=== PATIENT | female | born 1950 | race Caucasian/White ===

== ENCOUNTER 2017-02-11 06:07 | Day surgery (SDC) | payer MEDICARE ==
[~2017-02-11] VITALS: Ht 157.5 cm; Wt 46.8 kg
[2017-02-11 06:30] VITALS: BP 196/97; PULSE 110; RESP 20; TEMP 98.3; O2SAT 99
[2017-02-11] MEDS ORDERED: SODIUM BICARBONATE 100 MEQ in D5W 1000 ML IV SCH (06:45)
[2017-02-11] MEDS ORDERED: LORazepam 2 MG/ML VIAL ONE (07:05)
[2017-02-11 07:30] LABS: AUTOMATED NEUTROPHIL # 6.1 TH/MM3 (1.8-7.7); BASOPHIL % 0.6 % (0.0-2.0); EOSINOPHIL # 0.1 TH/MM3 (0-0.4); EOSINOPHIL % 1.3 % (0.0-4.0); HEMATOCRIT 35.8 % (35.0-46.0); HEMO FLAGS DIFF FINAL; LYMPH % 13.7 % (9.0-44.0); LYMPHOCYTE # 1.1 TH/MM3 (1.0-4.8); MEAN CELL VOLUME 95.7 FL (80.0-100.0); MEAN CORPUSCULAR HEMOGLOBIN 32.1 PG (27.0-34.0); MEAN CORPUSCULAR HGB CONC 33.5 % (32.0-36.0); MONO % 8.9 % (0.0-8.0); NEUT % 75.5 % (16.0-70.0); PLATELET COUNT 406 TH/MM3 (150-450); RED BLOOD COUNT 3.74 MIL/MM3 (4.00-5.30); RED CELL DISTRIBUTION WIDTH 13.3 % (11.6-17.2)
[2017-02-11 07:42] LABS: APTT (PATIENT) 25.9 SEC (24.3-30.1); PROTHROMBIN TIME - PATIENT 10.9 SEC (9.8-11.6)
[2017-02-11] MEDS ORDERED: NO HOME MEDICATIONS (07:46)
[2017-02-11 07:47] LABS: BICARBONATE 23.8 MEQ/L (21.0-32.0); POTASSIUM 3.8 MEQ/L (3.5-5.1)
[2017-02-11] MEDS ORDERED: HEPARIN SODIUM - IV 10,000 UNITS/10 ML VIAL ONE (08:09)
[2017-02-11] MEDS ORDERED: MIDAZOLAM HCL 5 MG/ML VIAL (1 ML) ONE (08:10)
[2017-02-11] MEDS ORDERED: IOHEXOL 300 MG/ML 50 ML BTL (for RAD DIAG) OTHER ONE (08:44)
[2017-02-11] MEDS ORDERED: IOHEXOL 300 MG/ML 100 ML BTL (for Rad CT) OTHER ONE (08:44)
[2017-02-11] MEDS ORDERED: LORazepam 2 MG/ML VIAL IV ONE (09:00)
[2017-02-11] MEDS ORDERED: hydrALAZINE HCL 20 MG/ML VIAL ONE (09:38)
[2017-02-11] MEDS: LORazepam 2 MG/ML VIAL IV PRN ×2 (09:59→13:31)
[2017-02-11] MEDS ORDERED: hydrALAZINE HCL 20 MG/ML VIAL IV PRN (11:00)
--- NOTE | 2017-02-11 11:16 | MA ---
cc: KYREE BARRON DATE 02/11/2017 ATTENDING PHYSICIAN Kyree Barron DO PREOPERATIVE DIAGNOSIS Critical limb ischemia bilateral lower extremity wounds. POSTOPERATIVE DIAGNOSIS Critical limb ischemia bilateral lower extremity wounds. PROCEDURE 1. Selective bilateral lower extremity arteriogram. 2. Duplex ultrasound for access SURGEON Kyree Barron DO CHANNEL LIP WETTER None IV FLUIDS 500 cc crystalloid. SEDATION Monitored ESTIMATED BLOOD LOSS Minimal PROCEDURE The patient's bilateral groins were prepped and draped in sterile fashion. This was done after the patient was under moderate sedation. I got access using duplex ultrasound of the bilateral groins with 4-[place] Citizen micropuncture catheters and I used approximately 6 cc of 1% lidocaine to help out with local anesthesia. I exchanged over a 21 gauge needle for a 4-[place] Citizen micropuncture catheter using Seldinger technique. I shot selective right lower extremity arteriogram and then subsequently selective left lower extremity arteriogram. My findings were that the right common femoral artery appeared to be patent, but diffusely narrowed with a calcification tracking around it. The right profunda femoral, superficial femoral arteries were widely patent. The right popliteal artery was patent and the patient appeared to have three-vessel runoff. On the left, the left common femoral artery appeared to some diffuse narrowing with a patent profunda and superficial femoral artery. The left popliteal artery was patent and the patient had three-vessel runoff. At the end of the procedure, we removed the sheaths out of the groin and applied pressure. DO TEETEE Kirkland/SARBJITL /9:18 AM /11:14 AM
[2017-02-11] MEDS ORDERED: LEVO250T7 PO (13:35)
[2017-02-11] MEDS ORDERED: AMBI10TA PO (13:35)
[2017-02-11] MEDS ORDERED: LEVOFLOXACIN 500 MG PREMIX INJ 100 ML IV ONE ×2 (13:58→14:00)
[2017-02-11 14:05] LABS: BLOOD, URINE NEG (NEG); COMMENT (UR) CATH-CULTURE IND; CULTURE IF INDICATED CATH CULTURE IND; GLUCOSE,URINE NEG (NEG); KETONE, URINE NEG (NEG); NITRITE,URINE NEG (NEG); PH, URINE 7.5 (5.0-8.5); URINE COLOR LIGHT-YELLOW (YELLW/STRAW)
== END 2017-02-11 15:00 | disposition home or self-care (01) ==
LOC: HCVO 06:07 → HDIC 06:08 → HCVO 15:00
PROVIDERS: ATTEND Surgery
DX: I73.9 Peripheral vascular disease, unspecified (principal); I99.8 Other disorder of circulatory system; S81.802D Unspecified open wound, left lower leg, subsequent encounter; S81.801D Unspecified open wound, right lower leg, subsequent encounter; Z87.891 Personal history of nicotine dependence; X58.XXXD Exposure to other specified factors, subsequent encounter
CPT/HCPCS: 36140; 75716; 80048; 81001; 85025; 85610; 85730; 87086; J0360; J1644; J1956; J2060; J2250; J3010; J7070; Q9967

== ENCOUNTER 2017-02-15 08:52 | Inpatient (IN) | payer MEDICARE ==
[~2017-02-15] VITALS: Ht 157.5 cm; Wt 56.8 kg
[~2017-02-15 08:52] MED LIST: AMBI10TA PO
[2017-02-18] MEDS ORDERED: LACTATED RINGER'S 1000 ML IV PRN (07:30)
[2017-02-18] MEDS ORDERED: SODIUM CHLORID 0.9% 500 ML IV PRN (07:30)
[2017-02-18] MEDS ORDERED: INSULIN HUMAN REGULAR 1,000 UNITS/10 ML VIAL SQ PRN (07:30)
[2017-02-18] MEDS ORDERED: METOPROLOL TARTRATE 25 MG TAB PO PRN (07:30)
[2017-02-18] MEDS ORDERED: POVIDONE IODINE 5% (ANTISEPSIS KIT) 4 APPLICATIONS EACH NARE PRN (07:30)
[2017-02-18] MEDS ORDERED: CHLORHEXIDINE GLUCONATE 2 % 1 PACK (2 CLOTHS) TOPICAL PRN (07:30)
[2017-02-18] MEDS ORDERED: PROTAMINE SULFATE 50 MG/5 ML VIAL ONE (07:59)
[2017-02-18] MEDS ORDERED: ceFAZolin 2 GM PREMIX 50 ML ONE (07:59)
[2017-02-18] MEDS ORDERED: VANCOMYCIN HCL 1000 MG VIAL ONE (07:59)
[2017-02-18] MEDS ORDERED: HEPARIN SODIUM - IV 10,000 UNITS/10 ML VIAL ONE (07:59)
[2017-02-18] MEDS ORDERED: HEPARIN SODIUM - SQ 10,000 UNITS/ML VIAL ONE ×2 (07:59→11:14)
[2017-02-18] MEDS ORDERED: THROMBIN (TOPICAL) 20,000 UNIT SPRAY KIT ONE (08:00)
[2017-02-18 08:34] VITALS: BP 159/71; PULSE 93; RESP 18; TEMP 98.4; O2SAT 98
[2017-02-18] MEDS ORDERED: ONDANSETRON HCL 4 MG/2 ML VIAL IV PUSH ONE (08:56)
[2017-02-18] MEDS ORDERED: PHENYLEPH/NS 1000 MCG/10 ML SYR IV ONE (08:56)
[2017-02-18] MEDS ORDERED: LACTATED RINGER'S 1000 ML INJ 1,000 ML IV ONE (08:56)
[2017-02-18] MEDS ORDERED: ePHEDrine/NS 25 MG/5 ML SYR IV ONE (08:56)
[2017-02-18] MEDS ORDERED: PROPOFOL 200 MG/20 ML AMP IV ONE (08:56)
[2017-02-18] MEDS ORDERED: SODIUM CHLOR 0.9% 250 ML INJ 500 ML IV ONE (08:57)
[2017-02-18] MEDS ORDERED: NORMOSOL R INJ 3,000 ML IV ONE (08:57)
[2017-02-18] MEDS ORDERED: ACETAMINOPHEN 1000 MG/100 ML VIAL IV ONE (09:35)
[2017-02-18] MEDS ORDERED: FAMOTIDINE 20 MG/2 ML VIAL ONE (09:35)
[2017-02-18] MEDS ORDERED: DEXAMETHASONE SOD PHOS 4 MG/ML VIAL ONE (09:35)
[2017-02-18] MEDS ORDERED: MIDAZOLAM HCL 2 MG/2 ML VIAL ONE ×2 (09:35→15:14)
[2017-02-18] MEDS ORDERED: BUPIVACAINE HCL PF 0.5% 30 ML VIAL ONE (10:45)
--- NOTE | 2017-02-18 11:06 | PD.VS.PN ---
Pre-operative Note Pre-operative diagnosis: CLI with tissue loss bilateral lower extremities Planned procedure: ax fem-fem Interval History: SEE H&P Labs: UA negative Blood: Type and crossed 2 units EKG: See EKG Imaging: Occluded abdominal aorta below renals Orders: NA Post-operative destination: CVICU Operative site marked: No Consent: Informed consent has been obtained from Daniela Schwarz [facility]. I have explained the procedure in detail and discussed the risks, benefits, and potential complications. All questions have been answered. Patient contact information: Kyree Gregory DO Feb 18, 2017 11:06
[2017-02-18] MEDS ORDERED: fentaNYL CITRATE 250 MCG/5 ML AMP ONE (15:15)
--- NOTE | 2017-02-18 15:17 | HHI.PR ---
Immediate Post Op Note Procedure Date: Feb 18, 2017 Pre Op Diagnosis: CLI Post Op Diagnosis: CLI Surgeon: Kyree Coffey Ornamental Rail Installer(s): Bandar Benites Procedure: Ax fem fem-fem Findings: Patent bypass Additional Information: NA Complications: none Specimen(s) removed: NA Estimated blood loss: 200cc Anesthesia: General Drains: None Fluids: 2liters IVF Tourniquet time (min at mmHg) NA Patient to: PACU Patient Condition: Good Implant/Devices: Other Date/Time of Procedure: Other Kyree Coffey DO Feb 18, 2017 15:17
[2017-02-18] MEDS ORDERED: GLUCAGON 1 MG/ML VIAL OTHER PRN (15:30)
[2017-02-18] MEDS ORDERED: MAGNESIUM HYDROXIDE SUSP 30 ML CUP PO PRN (15:30)
[2017-02-18] MEDS ORDERED: DEXTROSE 50% IN WATER 50 ML VIAL(D50) IV PUSH PRN (15:30)
[2017-02-18] MEDS ORDERED: ACETAMINOPHEN 325 MG TAB PO PRN (15:30)
[2017-02-18] MEDS ORDERED: Post-op Orders (for Pharmacy) MISC OTHER ONE (15:30)
[2017-02-18 16:15] VITALS: BP 109/84; PULSE 76; RESP 16; TEMP 97.4; O2SAT 99
[2017-02-18] MEDS: MORPHINE SULFATE 4 MG/ML INJ IV PUSH PRN (16:20)
[2017-02-18] MEDS: ONDANSETRON HCL 4 MG/2 ML VIAL IV PUSH PRN (16:23)
[2017-02-18 18:00] VITALS: PULSE 88
[2017-02-18] MEDS: INSULIN NovoLIN REGULAR SUPPLEMENTAL SCALE SQ SCH (18:35)
[2017-02-18] MEDS: SODIUM CHLOR 0.9% 1000 ML INJ 1,000 ML IV SCH (18:36)
[2017-02-18 19:00] VITALS: PULSE 76
[2017-02-18 20:00] VITALS: BP 144/80; PULSE 85; RESP 18; TEMP 97.6; O2SAT 99
--- NOTE | 2017-02-18 21:49 | PD.CONS ---
[facility] Service Critical Care Medicine Consult Requested By Dr. Coffey Reason for Consult post-op hemodynamic management Primary Care Physician No Primary Care Physician History of Present Illness This is a 66yF with history of PAD who presents for elective extra-anatomic bypass. She is POD 0 s/p right ax-fem/fem-fem bypass. Intraoperatively she received 3L crystalloid. she arrives to the CVICU extubated. she is arousing from anesthesia, and additional history is unobtainable from the patient. Review of Systems ROS Limitations: Clinical Condition Past Family Social History Allergies: Coded Allergies: No Known Allergies (Unverified , 02/11/17) Past Medical History peripheral arterial disease depression Past Surgical History POD 0 s/p ax-fem/fem-fem bypass Reported Medications reviewed in the chart. unobtainable from the patient due to her clinical condition Active Ordered Medications See MAR Family History unobtainable secondary to the clinical condition of the patient Social History unobtainable secondary to the clinical condition of the patient. Physical Exam Vital Signs Vital Signs Date Time Temp Pulse Resp B/P Pulse Ox O2 Delivery O2 Flow Rate FiO2 02/18/17 18:00 88 02/18/17 16:25 16 02/18/17 16:15 97.4 76 16 109/84 99 02/18/17 08:34 98.4 93 18 159/71 98 Physical Exam gen: middle-aged female, lying in bed, arousing from anesthesia heent: nc. at. perrl. mmm. neck: trachea midline. no jvd. chest: incision in right axilla clean dry intact. equal chest rise. nc o2. cv: normal rate, regular rhythm. sbp 96 mmHg. abd: soft, nontender, nondistended. no guarding. extr: bilateral groin incisions clean dry intact. distal pulses dopplerable. neuro: RASS -2. arousing from anesthesia. Laboratory Laboratory Tests Test 02/18/17 08:30 Blood Type O POSITIVE Assessment and Plan Assessment and Plan Assessment: 66yF POD 0 s/p ax-fem/fem-fem bypass. will monitor patient in the ICU. slightly hypotensive, will need to maintain end-organ perfusion. Recommendations: Acute post-operative pain - morphine prn s/p right ax-fem/fem-fem bypass -- frequent neurovascular checks -- anticoagulation per Dr. Coffey Hypotension -- continue mivf -- may require phenylephrine to keep SBP > 100 mmHg. -- monitor uop closely keep in ICU. advance diet as tolerated. CCM will continue to follow along while in the ICU. Fidencio Lomeli MD Feb 18, 2017 21:49
[2017-02-18] MEDS: DOCUSATE CALCIUM 240 MG CAP PO SCH (22:06)
[2017-02-18] MEDS: PANTOPRAZOLE SOD 40 MG DELAYED RELEASE TAB PO SCH (22:06)
[2017-02-18] MEDS: VANCOMYCIN INJ 1,000 MG in SODIUM CHLOR 0.9% 250 ML INJ 250 ML IV SCH (22:07)
[2017-02-18] MEDS: ZOLPIDEM TARTRATE 5 MG TAB PO PRN (22:33)
[2017-02-18 23:00] VITALS: BP 132/71; PULSE 85; RESP 18; TEMP 97.8; O2SAT 98
[2017-02-18] MEDS: oxyCODONE/ACETAMINOPHEN 5 MG/325 MG TAB PO PRN (23:23)
[2017-02-19] VITALS (12 sets, daily range): BP systolic 92–145; BP diastolic 43–71; PULSE 69–89; RESP 17–19; TEMP 98–99; O2SAT 98–100
[2017-02-19] MEDS: SODIUM CHLOR 0.9% 1000 ML INJ 1,000 ML IV SCH ×2 (04:41→12:06)
[2017-02-19 05:14] LABS: BICARBONATE 24.7 MEQ/L (21.0-32.0); POTASSIUM 3.8 MEQ/L (3.5-5.1)
[2017-02-19 05:23] LABS: CALCIUM-PROTEIN CORRECTED 8.5 MG/DL (8.5-10.1); TOTAL BILIRUBIN ADULT 0.3 MG/DL (0.2-1.0)
[2017-02-19] MEDS: INSULIN NovoLIN REGULAR SUPPLEMENTAL SCALE SQ SCH ×4 (06:00→18:00)
[2017-02-19] MEDS: ASPIRIN EC 325 MG TABEC PO SCH (08:09)
[2017-02-19] MEDS: oxyCODONE/ACETAMINOPHEN 10 MG/325 MG TAB PO PRN ×2 (08:09→17:42)
[2017-02-19] MEDS ORDERED: RESP: ALBUTEROL 2.5 MG/IPRATROPIUM 0.5 MG NEB (PRN) NEB (11:00)
--- NOTE | 2017-02-19 11:00 | HHI.CCPN ---
Subjective Remarks/Hospital Course This is a 66yF with history of PAD who presents for elective extra-anatomic bypass. She is POD 0 s/p right ax-fem/fem-fem bypass. Intraoperatively she received 3L crystalloid. she arrives to the CVICU extubated. she is arousing from anesthesia, and additional history is unobtainable from the patient. 02/19 Patient is awake and alert lying in bed in NAD. Afebrile. Objective Vital Signs Date Time Temp Pulse Resp B/P Pulse Ox O2 Delivery O2 Flow Rate FiO2 02/19/17 08:00 100 Nasal Cannula 2.00 02/19/17 07:00 82 02/19/17 07:00 98.3 17 121/71 Result Diagram: 02/19/17 0433 Other Results Laboratory Tests Test 02/19/17 04:33 Sodium Level 141 MEQ/L Potassium Level 3.8 MEQ/L Chloride Level 109 MEQ/L Carbon Dioxide Level 24.7 MEQ/L Anion Gap 7 MEQ/L Blood Urea Nitrogen 8 MG/DL Creatinine 0.53 MG/DL Estimat Glomerular Filtration 116 ML/MIN Rate Random Glucose 84 MG/DL Calcium Level 7.3 MG/DL Protein Corrected Calcium 8.5 MG/DL Total Bilirubin 0.3 MG/DL Aspartate Amino Transf 32 U/L (AST/SGOT) Alanine Aminotransferase 12 U/L (ALT/SGPT) Alkaline Phosphatase 47 U/L Total Protein 4.9 GM/DL Albumin 2.8 GM/DL Objective Remarks GENERAL: Patient is lying in bed in NAD SKIN: Warm and dry. HEAD: Normocephalic. EYES: No scleral icterus. No injection or drainage. NECK: Supple, trachea midline. No JVD or lymphadenopathy. CARDIOVASCULAR: Regular rate and rhythm without murmurs, gallops, or rubs. RESPIRATORY: Breath sounds equal bilaterally. No accessory muscle use. GASTROINTESTINAL: Abdomen soft, non-tender, nondistended. MUSCULOSKELETAL: No cyanosis, or edema. Neuro: Awake and alert A/P Assessment and Plan Assessment: 66yF s/p ax-fem/fem-fem bypass. Plan Neuro: Acute post-operative pain - morphine prn -Awake and alert s/p right ax-fem/fem-fem bypass -- frequent neurovascular checks -- anticoagulation per Dr. Coffey Pulm: Continue with oxygen keep sat >92% Bronchodilators, check CXR CV: Monitor HR and BP keep MAP>65mmHg On ASA : Monitor renal function, I/O's, electrolytes replacement as needed on NS@100ml/hr GI: Start PO diet if ok with Dr. Coffey ID: Monitor for signs of infections ( Fever, WBC). Perioperative abx per Vasc. On Vanco. Heme: Monitor CBC Endo: SSI for glycemic control GI/DVT prophylaxis- On Protonix 40mg daily, start chemical AC prophylaxis once cleared by vascular surg. Check labs today Will sign off and transfer care to [facility] Level 2 Tunde Aguero MD Feb 19, 2017 11:00
[2017-02-19] MEDS: MORPHINE SULFATE 4 MG/ML INJ IV PUSH PRN (12:04)
--- NOTE | 2017-02-19 12:05 | RADRPT ---
EXAM DATE/TIME: 02/19/2017 11:03 [facility] COMPARISON: CHEST PA & LAT, February 17, 2017, 12:37. INDICATIONS : Short of breath MEDICAL HISTORY : Hypertension. SURGICAL HISTORY : bilateral femoral bypass ENCOUNTER: Subsequent ACUITY: 3 days PAIN SCORE: 0/10 LOCATION: Bilateral chest FINDINGS: The lungs are clear without infiltrate, nodule, or mass. There is no appreciable pleural effusion fo r technique. Heart and mediastinum are unremarkable. There are atherosclerotic calcifications of the aorta due to chronic atherosclerotic disease. Left IJ line is present with tip overlapping the expec ria region of the SVC. There are old healed rib fractures in the left chest. There are gas bubbles in the right upper chest extending to the axilla with clips at the site postsurgical changes. CONCLUSION: No acute cardiopulmonary disease. Yumiko Real MD on February 19, 2017 at 12:02 Board Certified Radiologist. This report was verified electronically.
[2017-02-19] MEDS: VANCOMYCIN INJ 1,000 MG in SODIUM CHLOR 0.9% 250 ML INJ 250 ML IV SCH (12:07)
[2017-02-19 12:40] LABS: AUTOMATED NEUTROPHIL # 3.9 TH/MM3 (1.8-7.7); BASOPHIL % 0.6 % (0.0-2.0); EOSINOPHIL # 0.1 TH/MM3 (0-0.4); EOSINOPHIL % 1.1 % (0.0-4.0); LYMPH % 21.3 % (9.0-44.0); LYMPHOCYTE # 1.4 TH/MM3 (1.0-4.8); MEAN CELL VOLUME 96.7 FL (80.0-100.0); MEAN CORPUSCULAR HEMOGLOBIN 32.5 PG (27.0-34.0); MEAN CORPUSCULAR HGB CONC 33.6 % (32.0-36.0); MONO % 17.2 % (0.0-8.0); NEUT % 59.8 % (16.0-70.0); PLATELET COUNT 197 TH/MM3 (150-450); RED BLOOD COUNT 2.11 MIL/MM3 (4.00-5.30); RED CELL DISTRIBUTION WIDTH 13.5 % (11.6-17.2); WHITE BLOOD COUNT 6.4 TH/MM3 (4.0-11.0)
[2017-02-19 12:54] LABS: HEMATOCRIT 20.4 % (35.0-46.0); HEMO FLAGS DIFF FINAL
[2017-02-19 13:04] LABS: MAGNESIUM 1.9 MG/DL (1.5-2.5); POTASSIUM 3.4 MEQ/L (3.5-5.1)
[2017-02-19 13:22] LABS: CALCIUM-PROTEIN CORRECTED 8.5 MG/DL (8.5-10.1)
[2017-02-19] MEDS ORDERED: MAGNESIUM SULFATE INJ 2 GM in SODIUM CHLORIDE 0.9% INJ 96 ML IV PRN (13:45)
[2017-02-19] MEDS ORDERED: POTASSIUM PHOSPHATE MONOBASIC 500 MG TAB PO PRN (13:45)
[2017-02-19] MEDS ORDERED: POTASSIUM CHLOR 40 MEQ PREMIX 100 ML IV PRN ×2 (13:45)
[2017-02-19] MEDS ORDERED: POTASSIUM PHOSPHATE MONOBASIC 500 MG TAB PO/TUBE PRN (13:45)
[2017-02-19] MEDS ORDERED: SODIUM PHOSPHATE INJ 30 MMOL in SODIUM CHLOR 0.9% 250 ML INJ 240 ML IV PRN (13:45)
[2017-02-19] MEDS ORDERED: POTASSIUM CHLOR 20 MEQ PREMIX 100 ML IV PRN ×2 (13:45)
[2017-02-19] MEDS ORDERED: POTASSIUM CHLORIDE 25 MEQ EFFERVESCENT TAB PO PRN (13:45)
[2017-02-19] MEDS ORDERED: MAGNESIUM OXIDE 400 MG TAB PO PRN (13:45)
[2017-02-19] MEDS ORDERED: MAGNESIUM SULFATE INJ 4 GM in SODIUM CHLORIDE 0.9% INJ 92 ML IV PRN (13:45)
[2017-02-19] MEDS ORDERED: POTASSIUM PHOSPHATE INJ 30 MMOL in SODIUM CHLOR 0.9% 250 ML INJ 250 ML IV PRN (13:45)
[2017-02-19 13:58] LABS: REVIEW FLAG FINAL
[2017-02-19 13:59] LABS: HEMATOCRIT 19.2 % (35.0-46.0)
--- NOTE | 2017-02-19 14:06 | PD.VS.PN ---
Subjective POD #: 1 Procedure(s): ax fem, fem-fem Subjective/Hospital Course some foot pain on the left. Objective Vascular: strong signals bilateral DP and PT. Dressing bilateral groins are intact. Laboratory Laboratory Tests Test 02/19/17 02/19/17 02/19/17 04:33 12:21 13:00 Sodium Level 141 144 Potassium Level 3.8 3.4 Chloride Level 109 113 Carbon Dioxide Level 24.7 26.0 Anion Gap 7 5 Blood Urea Nitrogen 8 7 Creatinine 0.53 0.47 Estimat Glomerular Filtration 116 133 Rate Random Glucose 84 97 Calcium Level 7.3 7.2 Protein Corrected Calcium 8.5 8.5 Total Bilirubin 0.3 Aspartate Amino Transf 32 (AST/SGOT) Alanine Aminotransferase 12 (ALT/SGPT) Alkaline Phosphatase 47 Total Protein 4.9 4.7 Albumin 2.8 White Blood Count 6.4 Red Blood Count 2.11 Hemoglobin 6.9 6.5 Hematocrit 20.4 19.2 Mean Corpuscular Volume 96.7 Mean Corpuscular Hemoglobin 32.5 Mean Corpuscular Hemoglobin 33.6 Concent Red Cell Distribution Width 13.5 Platelet Count 197 Mean Platelet Volume 7.6 Neutrophils (%) (Auto) 59.8 Lymphocytes (%) (Auto) 21.3 Monocytes (%) (Auto) 17.2 Eosinophils (%) (Auto) 1.1 Basophils (%) (Auto) 0.6 Neutrophils # (Auto) 3.9 Lymphocytes # (Auto) 1.4 Monocytes # (Auto) 1.1 Eosinophils # (Auto) 0.1 Basophils # (Auto) 0.0 CBC Comment DIFF FINAL Differential Comment Phosphorus Level 1.6 Magnesium Level 1.9 Imaging Last 48 hours Impressions Chest X-Ray 02/19/17 0000 Signed Impressions: Service Date/Time: Sunday, February 19, 2017 11:03 - CONCLUSION: No acute cardiopulmonary disease. Yumiko Real MD Assessment and Plan Assessment: (1) Aortoiliac occlusive disease Status: Acute Plan Transfuse PRBcs OOB to chair advance diet. downgrade to CIC if CVICU bed needed. Kyree Coffey DO, Kyree Garcia DO Feb 19, 2017 14:06
[2017-02-19] MEDS: ONDANSETRON HCL 4 MG/2 ML VIAL IV PUSH PRN (14:42)
[2017-02-19 15:37] LABS: PROTHROMBIN TIME - PATIENT 11.5 SEC (9.8-11.6)
[2017-02-19] MEDS: RESP: ALBUTEROL 2.5 MG/IPRATROPIUM 0.5 MG NEB (SCH) NEB ×2 (16:32→22:33)
[2017-02-19] MEDS: DOCUSATE CALCIUM 240 MG CAP PO SCH (21:38)
[2017-02-19] MEDS: PANTOPRAZOLE SOD 40 MG DELAYED RELEASE TAB PO SCH (21:38)
[2017-02-20] VITALS (11 sets, daily range): BP systolic 106–148; BP diastolic 54–83; PULSE 72–79; RESP 15–18; TEMP 98–99; O2SAT 93–99
[2017-02-20] MEDS: ZOLPIDEM TARTRATE 5 MG TAB PO PRN ×2 (00:49→23:28)
[2017-02-20] MEDS: oxyCODONE/ACETAMINOPHEN 10 MG/325 MG TAB PO PRN ×6 (00:50→22:21)
[2017-02-20 01:25] LABS: REVIEW FLAG FINAL
[2017-02-20] MEDS: RESP: ALBUTEROL 2.5 MG/IPRATROPIUM 0.5 MG NEB (SCH) NEB ×4 (04:00→21:17)
[2017-02-20] MEDS: INSULIN NovoLIN REGULAR SUPPLEMENTAL SCALE SQ SCH ×4 (06:00→18:00)
[2017-02-20] MEDS: ASPIRIN EC 325 MG TABEC PO SCH (09:39)
--- NOTE | 2017-02-20 13:07 | PD.VS.PN ---
Subjective POD #: 2 Procedure(s): ax fem, fem-fem Subjective/Hospital Course tolerating PO improved. Objective Vascular: Triphasic signals Wound vacs clean Laboratory Laboratory Tests Test 02/19/17 02/20/17 15:22 00:45 Prothrombin Time 11.5 Prothromb Time International 1.0 Ratio Blood Type O POSITIVE Crossmatch Leukocyte-Reduced Red Blood Cells Blood Bank Comment Hemoglobin 10.7 Hematocrit 31.0 Imaging Last 48 hours Impressions Chest X-Ray 02/19/17 0000 Signed Impressions: Service Date/Time: Sunday, February 19, 2017 11:03 - CONCLUSION: No acute cardiopulmonary disease. Yumiko Real MD Assessment and Plan Assessment: (1) Aortoiliac occlusive disease Status: Acute Plan DC gross DC Central line OOB with PT discharge planning. Kyree Coffey DO, Kyree Garcia DO Feb 20, 2017 13:07
[2017-02-20 13:18] LABS: ALKALINE PHOSPHATASE 57 U/L (45-117); ALT (GPT) 14 U/L (10-53); ANION GAP 7 MEQ/L (5-15); AST (GOT) 26 U/L (15-37); BLOOD UREA NITROGEN 6 MG/DL (7-18); CHLORIDE 110 MEQ/L (98-107); GLOMERULAR FILTRATION RATE 121 ML/MIN (>89); POTASSIUM 3.5 MEQ/L (3.5-5.1); SODIUM (NA) 142 MEQ/L (136-145); TOTAL BILIRUBIN ADULT 0.4 MG/DL (0.2-1.0)
[2017-02-20] MEDS ORDERED: DOCUSATE SODIUM 50 MG/SENNA 8.6 MG TAB PO ONE (16:15)
[2017-02-20] MEDS ORDERED: MAGNESIUM HYDROXIDE SUSP 30 ML CUP PO ONE (16:15)
--- NOTE | 2017-02-20 16:19 | HHI.PR ---
Subjective Remarks Since afternoon around 2 PM. Says she is feeling well. Denies any chest pain or shortness of breath. Reports pain in bilateral feet is controlled. Objective Vital Signs Date Time Temp Pulse Resp B/P Pulse Ox O2 Delivery O2 Flow Rate FiO2 02/20/17 15:00 72 02/20/17 15:00 98.0 78 16 139/74 95 02/20/17 11:00 98.2 72 16 148/76 99 02/20/17 11:00 72 02/20/17 09:25 96 Nasal Cannula 2.00 02/20/17 09:12 14 02/20/17 07:00 78 02/20/17 07:00 98.1 78 16 106/54 98 02/20/17 04:00 98.6 74 18 121/64 95 02/20/17 03:10 75 02/20/17 00:00 99.0 79 16 131/69 97 02/19/17 23:30 77 02/19/17 22:33 98 Nasal Cannula 2.00 02/19/17 20:00 99.0 88 18 145/71 98 02/19/17 19:00 86 I/O 02/19/17 02/19/17 02/19/17 02/20/17 02/20/17 02/20/17 07:00 15:00 23:00 07:00 15:00 23:00 Intake Total 1508 ml 1250 ml 1320 ml Output Total 675 ml 750 ml 1075 ml Balance 833 ml 500 ml 245 ml Intake Oral 240 ml 450 ml 240 ml IV Total 1268 ml 800 ml 700 ml Packed Cells 380 ml Output Urine Total 575 ml 650 ml 1075 ml Emesis 100 ml 100 ml # Bowel Movements 0 0 0 Result Diagram: 02/20/17 0045 02/20/17 1158 Objective Remarks GENERAL: Patient sitting up in bed. Appears comfortable. SKIN: Warm and dry. HEAD: Normocephalic. EYES: No scleral icterus. No injection or drainage. NECK: Supple, trachea midline. No JVD. CARDIOVASCULAR: Regular rate and rhythm without murmurs, gallops, or rubs. RESPIRATORY: Breath sounds equal bilaterally. No accessory muscle use. GASTROINTESTINAL: Abdomen soft, non-tender, nondistended. MUSCULOSKELETAL: No cyanosis, or edema. Bilateral ankle wounds are dressed, with dressing clean dry and intact. Capillary refill acceptable. BACK: Nontender without obvious deformity. No CVA tenderness. A/P Assessment and Plan === 02/20/17========= //Started with constipation. Laxatives ordered //Hypophosphatemia. Phosphorus 1.6 on 02/19. Recheck labs tomorrow. //DC planning. Physical therapy and case management consult ordered. //postoperative ax-fem/fem-fem bypass. -Postoperative and pain management as per surgical service. -Coagulation as per surgical service. -Awaiting return of bowel function //Postoperative constipation. Laxatives ordered //Anemia. Hemoglobin 6.9 on 02/19 Status post replacement with 2 units PRBCs. Hemoglobin stable at 10.7 today. Recheck tomorrow. No signs of bleeding. //Hypokalemia. Potassium 3.4 and 02/19. Resolved currently. DVT prophylaxis. Regulation as per surgical service. Discharge Planning His therapy and case management following As per surgical service. Yannick Ladd MD Feb 20, 2017 16:19
--- NOTE | 2017-02-20 19:19 | MP ---
cc: LUCI BARRON DATE OF SURGERY 02/18/2017 PREOPERATIVE DIAGNOSIS Critical limb ischemia of wounds, bilateral legs. POSTOPERATIVE DIAGNOSIS Critical limb ischemia of wounds, bilateral legs. PROCEDURES Right axillary to femoral and then fem-fem bypass. SURGEON DO Erlinda VOTING MACHINE REPAIRER Bandar Benites ESTIMATED BLOOD LOSS 200 cc. URINE OUTPUT NA. COMPLICATIONS None. DISPOSITION To PACU. PROCEDURE IN DETAIL The patient was prepped and draped from the sternal notch to the knees bilaterally. The right arm was extended and the patient was in the supine position. The patient was given perioperative IV antibiotics. We used a scalpel and electrocautery to dissect down one fingerbreadths below of the right clavicle between the sternal notch and the coracoid process. I used scalpel and electrocautery and to dissect down through the pectoralis major fibers. I retracted the pectoralis minor laterally. Isolated the axillary artery and removed any periadventitial tissues. I divided with 2-0 silks and medium clips the inferior branch off the axillary artery. Once I had control circumferentially around the vessel I used a vessel loops for this. It should be noted that the axillary vein which is usually inferior and anterior in this patient was inferior and posterior and did not appear to be in the path where I made my tunnel. I did make vertical groin incision in the medial third of the groins bilaterally with a scalpel and electrocautery. I dissected down to the common profunda and superficial femoral arteries bilaterally, removed any periadventitial tissue. It should be noted that I made a tunnel between the right groin and the right chest, making sure that I was able to make a tunnel without any counter incision and I extended it just across the SIS through the mid axillary line, then behind the pectoralis minor muscle as it came in below the axillary artery. I then made a tunnel between the right and left groin. I used an 80 cm 8 mm ringed PTFE graft, tunnel it, making sure that it was not torque or twisted as I brought it from the groin to the chest. It should be noted I also used an 8 millimeter ringed PTFE to go from groin to groin. I performed my proximal anastomosis after heparinizing the patient to an ACT greater than 300. I used profunda clamps in order to proximal distal control the axillary artery. I made an arteriotomy with an 11-blade and Curtis scissors. I performed a proximal anastomosis with a 5-0 Prolene and a BD1. It should be noted I used a Latrice Hydrogrip clamp in order to control my graft just distal to my anastomosis. There was no correction sutures needed. I then made an arteriotomy of the right common femoral artery after using pediatric profunda clamps to control the common, superficial and profunda femoral arteries. I then performed an anastomosis with a 5-0 and a BD1. Then I opened up my graft and then over sewed the proximal limb of the fem-fem graft on top with a [place]-Reji suture. This was a 5-0 Gortex. I then declotted in the area of the graft through the fem-fem limb and placed a Latrice clamp on the proximal portion of the fem-fem, then released the superficial profunda and common femoral clamps getting blood flow to the right lower extremity. I then performed an arteriotomy on the left common femoral and then I got control of the common, superficial and profunda femoral arteries on the left with pediatric profunda clamps. I then performed an end-to-side anastomosis to the left common femoral artery with a 5-0 and a BD1. At the end of procedure I removed my clamps. I did use FloSeal in the bilateral groins and in the chest to help out with hemostasis and Surgicel. It should be noted there were strong dorsalis pedis signals that were triphasic at the end of the case that could be heard with Doppler. I closed all three areas in layers with a 2-0 and 3-0 Vicryl absorbable suture and a 4-0 Monocryl. I did use ___ in the groins and Surgicel for the skin below the right infraclavicular location. The patient went to the CVICU at the end of the case. DO TEETEE Kirkland/GREG /3:07 PM /6:52 PM
[2017-02-20] MEDS: DOCUSATE CALCIUM 240 MG CAP PO SCH (20:07)
[2017-02-20] MEDS: PANTOPRAZOLE SOD 40 MG DELAYED RELEASE TAB PO SCH (20:07)
[2017-02-20] MEDS: ONDANSETRON HCL 4 MG/2 ML VIAL IV PUSH PRN (22:22)
[2017-02-21] VITALS (8 sets, daily range): BP systolic 138–171; BP diastolic 70–98; PULSE 67–89; RESP 15–18; TEMP 97.4–98.6; O2SAT 93–99
[2017-02-21] MEDS: RESP: ALBUTEROL 2.5 MG/IPRATROPIUM 0.5 MG NEB (SCH) NEB ×3 (03:37→16:00)
[2017-02-21 05:20] LABS: AUTOMATED NEUTROPHIL # 5.6 TH/MM3 (1.8-7.7); BASOPHIL # 0.1 TH/MM3 (0-0.2); BASOPHIL % 0.8 % (0.0-2.0); EOSINOPHIL # 0.4 TH/MM3 (0-0.4); EOSINOPHIL % 4.3 % (0.0-4.0); HEMATOCRIT 33.5 % (35.0-46.0); HEMO FLAGS DIFF FINAL; LYMPH % 14.2 % (9.0-44.0); LYMPHOCYTE # 1.2 TH/MM3 (1.0-4.8); MEAN CELL VOLUME 90.7 FL (80.0-100.0); MEAN CORPUSCULAR HEMOGLOBIN 30.6 PG (27.0-34.0); MEAN CORPUSCULAR HGB CONC 33.8 % (32.0-36.0); MONO % 14.5 % (0.0-8.0); NEUT % 66.2 % (16.0-70.0); PLATELET COUNT 208 TH/MM3 (150-450); WHITE BLOOD COUNT 8.5 TH/MM3 (4.0-11.0)
[2017-02-21 05:43] LABS: BICARBONATE 26.7 MEQ/L (21.0-32.0); MAGNESIUM 1.9 MG/DL (1.5-2.5); POTASSIUM 3.4 MEQ/L (3.5-5.1)
[2017-02-21] MEDS: INSULIN NovoLIN REGULAR SUPPLEMENTAL SCALE SQ SCH ×3 (06:00→12:00)
[2017-02-21] MEDS: oxyCODONE/ACETAMINOPHEN 10 MG/325 MG TAB PO PRN ×5 (07:29→23:53)
[2017-02-21] MEDS: ONDANSETRON HCL 4 MG/2 ML VIAL IV PUSH PRN (07:29)
--- NOTE | 2017-02-21 08:27 | PD.VS.PN ---
Subjective Procedure(s): ax fem, fem-fem Subjective/Hospital Course tolerating PO improved. Walked with walker yesterday. Objective Vascular: triphasic pedal signals Right chest incision clean and intact. Bilateral groins dressings in place, soft sites. Laboratory Laboratory Tests Test 02/20/17 02/21/17 11:58 04:53 Sodium Level 142 141 Potassium Level 3.5 3.4 Chloride Level 110 107 Carbon Dioxide Level 25.0 26.7 Anion Gap 7 7 Blood Urea Nitrogen 6 6 Creatinine 0.51 0.53 Estimat Glomerular Filtration 121 116 Rate Random Glucose 126 85 Calcium Level 8.2 8.4 Total Bilirubin 0.4 Aspartate Amino Transf 26 (AST/SGOT) Alanine Aminotransferase 14 (ALT/SGPT) Alkaline Phosphatase 57 Total Protein 5.8 Albumin 2.7 2.5 White Blood Count 8.5 Red Blood Count 3.70 Hemoglobin 11.3 Hematocrit 33.5 Mean Corpuscular Volume 90.7 Mean Corpuscular Hemoglobin 30.6 Mean Corpuscular Hemoglobin 33.8 Concent Red Cell Distribution Width 17.0 Platelet Count 208 Mean Platelet Volume 8.0 Neutrophils (%) (Auto) 66.2 Lymphocytes (%) (Auto) 14.2 Monocytes (%) (Auto) 14.5 Eosinophils (%) (Auto) 4.3 Basophils (%) (Auto) 0.8 Neutrophils # (Auto) 5.6 Lymphocytes # (Auto) 1.2 Monocytes # (Auto) 1.2 Eosinophils # (Auto) 0.4 Basophils # (Auto) 0.1 CBC Comment DIFF FINAL Differential Comment Phosphorus Level 1.9 Magnesium Level 1.9 Assessment and Plan Assessment: (1) Aortoiliac occlusive disease Status: Acute Plan Tolerating PO and voided. PO pain meds ok. OOB with PT for help with dispo. discharge planning. Kyree Coffey DO, Kyree Garcia DO Feb 21, 2017 08:27
--- NOTE | 2017-02-21 08:52 | HHI.PR ---
Subjective Remarks Follow-up anemia, constipation, hypokalemia. Patient states that she is feeling much better today. Denies chest pain, dyspnea. Denies nausea, vomiting, abdominal pain. Objective Vitals Vital Signs Date Time Temp Pulse Resp B/P Pulse Ox O2 Delivery O2 Flow Rate FiO2 02/21/17 07:29 96 21 02/21/17 03:07 67 02/21/17 03:07 98.6 70 15 138/70 93 02/20/17 23:05 74 02/20/17 23:05 98.0 74 15 147/83 93 02/20/17 21:18 97 Nasal Cannula 3.00 02/20/17 19:42 98.3 74 17 127/70 95 02/20/17 19:00 75 02/20/17 15:00 72 02/20/17 15:00 98.0 78 16 139/74 95 02/20/17 11:00 98.2 72 16 148/76 99 02/20/17 11:00 72 02/20/17 09:25 96 Nasal Cannula 2.00 02/20/17 09:12 14 I/O 02/20/17 02/20/17 02/20/17 02/21/17 02/21/17 02/21/17 07:00 15:00 23:00 07:00 15:00 23:00 Intake Total 1320 ml 730 ml 480 ml Output Total 1075 ml 600 ml 1200 ml Balance 245 ml 130 ml -720 ml Intake Oral 240 ml 480 ml 480 ml IV Total 700 ml 250 ml Packed Cells 380 ml Output Urine Total 1075 ml 600 ml 1200 ml # Bowel Movements 0 0 0 Result Diagram: 02/21/17 0453 02/21/17 0453 Imaging Last Impressions Chest X-Ray 02/19/17 0000 Signed Impressions: Service Date/Time: Sunday, February 19, 2017 11:03 - CONCLUSION: No acute cardiopulmonary disease. Yumiko Real MD Objective Remarks General: No acute distress. Heart: Regular rate and rhythm. No murmur. Lungs: Clear to auscultation bilaterally. No wheezes, rales, or rhonchi. Breathing is nonlabored. Abdomen: Soft, nontender, nondistended. Extremities: No lower extremity edema. Lower extremity wounds are bandaged. Psych: Alert and oriented. Procedures 02/18/17 right axillary to femoral and then femoral to femoral bypass Urinary Catheter: No Vascular Central Line Catheter: No A/P Problem List: (1) Aortoiliac occlusive disease ICD Code: I74.09 Status: Acute (2) Constipation ICD Code: K59.00 Status: Acute (3) Hypokalemia ICD Code: E87.6 Status: Acute (4) Anemia ICD Code: D64.9 Status: Acute Assessment and Plan 1. Aortoiliac occlusion: Status post axillofemoral and femorofemoral bypass. Management per vascular surgery. Continue aspirin. Continue pain control. 2. Postoperative constipation: Continue bowel regimen. 3. Anemia: Hemoglobin dropped to 6.9 on 02/19/17. She received 2 units PRBCs. Hemoglobin has remained stable following transfusion. No apparent active bleeding. 4. Hypokalemia: Supplement potassium and monitor labs. 5. Hypophosphatemia: Supplement phosphorus. 6. GI prophylaxis: Protonix. 7. DVT prophylaxis: Per surgery. Discussed with Dr. Coffey. Cristian Skaggs MD Feb 21, 2017 08:52
[2017-02-21] MEDS: ASPIRIN EC 325 MG TABEC PO SCH (11:49)
[2017-02-21] MEDS: DOCUSATE CALCIUM 240 MG CAP PO SCH (19:40)
[2017-02-21] MEDS: PANTOPRAZOLE SOD 40 MG DELAYED RELEASE TAB PO SCH (19:40)
[2017-02-21] MEDS: ZOLPIDEM TARTRATE 5 MG TAB PO PRN (23:53)
[2017-02-22] VITALS (22 sets, daily range): BP systolic 84–142; BP diastolic 58–97; PULSE 66–114; RESP 14–18; TEMP 98–98.7; O2SAT 96–99
[2017-02-22] MEDS: RESP: ALBUTEROL 2.5 MG/IPRATROPIUM 0.5 MG NEB (SCH) NEB ×4 (04:00→20:15)
[2017-02-22] MEDS: oxyCODONE/ACETAMINOPHEN 10 MG/325 MG TAB PO PRN ×2 (07:05→20:13)
[2017-02-22] MEDS: ASPIRIN EC 325 MG TABEC PO SCH (08:34)
--- NOTE | 2017-02-22 09:22 | PD.VS.PN ---
Subjective POD #: 4 Procedure(s): ax fem, fem-fem Subjective/Hospital Course Pt in bed alert in NAD Pain Controlled Pt w/o complaints Reported improved LLE pain (Dianna Pratt) Objective Vitals/I&O Date Time Temp Pulse Resp B/P Pulse Ox O2 Delivery O2 Flow Rate FiO2 02/22/17 03:17 98.0 72 14 142/73 98 02/22/17 03:17 66 02/21/17 23:21 98.0 71 15 151/75 98 02/21/17 23:21 71 02/21/17 19:32 97.8 89 16 160/87 99 02/21/17 19:00 89 02/21/17 15:00 97.4 88 18 150/98 98 02/21/17 15:00 88 02/21/17 13:18 16 02/21/17 11:00 83 02/21/17 11:00 97.8 80 16 171/97 96 02/22/17 02/22/17 02/22/17 06:59 14:59 22:59 Intake Total 240 ml Output Total 600 ml Balance -360 ml Exam: GENERAL: A&OX3, NAD, GCS15 SKIN: Warm and dry/ incision to R chest intact w/ surgical glue w/o R/D/S. Bilat groin incisions intact w/o R/D/S no hematoma present, dressing to LLE clean and dry GASTROINTESTINAL: S/NT MUSCULOSKELETAL: No cyanosis/ mild non pitting LLE edema present Palpable R/L DP Bilat LE warm w/ motor intact (Dianna Pratt) Assessment and Plan Assessment: (1) Aortoiliac occlusive disease Status: Acute Plan Plan Continue PT/OOB w/ walker Removed bilat groin wound vacs Apply dry dressings to bilat groins Dianna CASTANON [employer] [phone] Discharge Planning Potentially Tomorrow AM (Dianna Pratt) Plan I agree with above. DC planning taking place. (Kyree Coffey DO) Dianna Pratt Feb 22, 2017 09:22 Kyree Coffey DO Feb 22, 2017 14:43
--- NOTE | 2017-02-22 10:12 | HHI.PR ---
Subjective Remarks Follow up anemia, constipation, hypokalemia. The patient states that she feels better today. Mild nausea. Denies chest pain, dyspnea. Objective Vitals Vital Signs Date Time Temp Pulse Resp B/P Pulse Ox O2 Delivery O2 Flow Rate FiO2 02/22/17 03:17 98.0 72 14 142/73 98 02/22/17 03:17 66 02/21/17 23:21 98.0 71 15 151/75 98 02/21/17 23:21 71 02/21/17 19:32 97.8 89 16 160/87 99 02/21/17 19:00 89 02/21/17 15:00 97.4 88 18 150/98 98 02/21/17 15:00 88 02/21/17 13:18 16 02/21/17 11:00 83 02/21/17 11:00 97.8 80 16 171/97 96 I/O 02/21/17 02/21/17 02/21/17 02/22/17 02/22/17 02/22/17 07:00 15:00 23:00 07:00 15:00 23:00 Intake Total 480 ml 970 ml 240 ml Output Total 1200 ml 300 ml 600 ml Balance -720 ml 670 ml -360 ml Intake Oral 480 ml 720 ml 240 ml IV Total 250 ml Output Urine Total 1200 ml 300 ml 600 ml # Voids 1 # Bowel Movements 0 0 0 Result Diagram: 02/21/17 0453 02/21/17 0453 Imaging Last Impressions Chest X-Ray 02/19/17 0000 Signed Impressions: Service Date/Time: Sunday, February 19, 2017 11:03 - CONCLUSION: No acute cardiopulmonary disease. Yumiko Real MD Objective Remarks General: No acute distress. Heart: Regular rate and rhythm. No murmur. Lungs: Clear to auscultation bilaterally. No wheezes, rales, or rhonchi. Breathing is nonlabored. Abdomen: Soft, nontender, nondistended. Extremities: No lower extremity edema. Lower extremity wounds are bandaged. Psych: Alert and oriented. Procedures 02/18/17 right axillary to femoral and then femoral to femoral bypass Urinary Catheter: No Vascular Central Line Catheter: No A/P Problem List: (1) Aortoiliac occlusive disease ICD Code: I74.09 Status: Acute (2) Constipation ICD Code: K59.00 Status: Acute (3) Hypokalemia ICD Code: E87.6 Status: Acute (4) Anemia ICD Code: D64.9 Status: Acute Assessment and Plan 1. Aortoiliac occlusion: Status post axillofemoral and femorofemoral bypass. Management per vascular surgery. Continue aspirin. Continue pain control. 2. Postoperative constipation: Continue bowel regimen. 3. Anemia: Hemoglobin dropped to 6.9 on 02/19/17. She received 2 units PRBCs. Hemoglobin has remained stable following transfusion. No apparent active bleeding. No labs today. 4. Hypokalemia: Received supplementation. No labs today. 5. Hypophosphatemia: Supplemented. 6. GI prophylaxis: Protonix. 7. DVT prophylaxis: Per surgery. Discharge Planning Per Vascular Surgery. Cristian Skaggs MD Feb 22, 2017 10:12
[2017-02-22] MEDS: oxyCODONE/ACETAMINOPHEN 5 MG/325 MG TAB PO PRN (15:00)
[2017-02-22] MEDS: DOCUSATE CALCIUM 240 MG CAP PO SCH (20:13)
[2017-02-22] MEDS: PANTOPRAZOLE SOD 40 MG DELAYED RELEASE TAB PO SCH (20:13)
[2017-02-22] MEDS: ZOLPIDEM TARTRATE 5 MG TAB PO PRN (23:06)
[2017-02-23] VITALS (12 sets, daily range): BP systolic 107–124; BP diastolic 71–84; PULSE 63–128; RESP 16–18; TEMP 98.1–98.7; O2SAT 98
[2017-02-23] MEDS: oxyCODONE/ACETAMINOPHEN 10 MG/325 MG TAB PO PRN ×2 (00:34→04:26)
[2017-02-23] MEDS: RESP: ALBUTEROL 2.5 MG/IPRATROPIUM 0.5 MG NEB (SCH) NEB (03:50)
[2017-02-23] MEDS: ASPIRIN EC 325 MG TABEC PO SCH (08:34)
[2017-02-23] MEDS: oxyCODONE/ACETAMINOPHEN 5 MG/325 MG TAB PO PRN (08:35)
[2017-02-23] MEDS ORDERED: OXYC1TAB36 PO (09:01)
[2017-02-23] MEDS ORDERED: ASPI325T33 PO (09:01)
[2017-02-23] MEDS ORDERED: COLL30T TOPICAL (09:02)
--- NOTE | 2017-02-23 09:13 | PD.VS.DC ---
Discharge Summary Admission Date: Feb 18, 2017 at 06:53 Discharge Date: Feb 23, 2017 Admission Diagnosis: (1) Aortoiliac occlusive disease Discharge Diagnosis: (1) Aortoiliac occlusive disease Status: Acute Brief History from admission Pt is a 66/F who was admitted with CLI with tissue loss bilateral lower extremities Procedure(s): ax fem, fem-fem Significant Findings GENERAL: A&OX3, NAD, GCS15 SKIN: Warm and dry/ Bilat groin incisions intact w/o R/D/S No Hematoma/ L medial ulceration 3cm X 3.75 with mild serosanguanious drainage/ R above the ankle 1.5X1.5 cm w/o Redness at the borders no D/S/R/ R chest incision intact with surgical glue no R/D/S MUSCULOSKELETAL: No cyanosis/ Swelling improved to LLE/ BLE warm w/ motor intact Strong Bilat DP/PT heard via Doppler Laboratory Tests Test 02/20/17 02/21/17 11:58 04:53 Chloride Level 110 MEQ/L (98-107) Blood Urea Nitrogen 6 MG/DL (7-18) 6 MG/DL (7-18) Random Glucose 126 MG/DL (74-106) Calcium Level 8.2 MG/DL 8.4 MG/DL (8.5-10.1) (8.5-10.1) Total Protein 5.8 GM/DL (6.4-8.2) Albumin 2.7 GM/DL 2.5 GM/DL (3.4-5.0) (3.4-5.0) Red Blood Count 3.70 MIL/MM3 (4.00-5.30) Hemoglobin 11.3 GM/DL (11.6-15.3) Hematocrit 33.5 % (35.0-46.0) Monocytes (%) (Auto) 14.5 % (0.0-8.0) Eosinophils (%) (Auto) 4.3 % (0.0-4.0) Monocytes # (Auto) 1.2 TH/MM3 (0-0.9) Potassium Level 3.4 MEQ/L (3.5-5.1) Phosphorus Level 1.9 MG/DL (2.5-4.9) Hospital Course: Hx of CLI with tissue loss Pt is S/P ax fem/fem-fem Pt doing well post op and is w/o complication Pt to be d/c today Allergies Coded Allergies Type Severity Reaction Last Updated Verified No Known Allergies 02/11/17 No //// 06:00 18:00 06:00 18:00 06:00 18:00 Intake Total 480 ml 970 ml 240 ml 1164 ml Output Total 1200 ml 300 ml 600 ml 425 ml Balance -720 ml 670 ml -360 ml 739 ml Intake Oral 480 ml 720 ml 240 ml 1164 ml IV Total 250 ml 0 ml Output Urine Total 1200 ml 300 ml 600 ml 425 ml # Voids 1 3 # Bowel Movements 0 0 0 0 Laboratory Tests Test 02/20/17 02/21/17 11:58 04:53 Sodium Level 142 MEQ/L 141 MEQ/L Potassium Level 3.5 MEQ/L 3.4 MEQ/L Chloride Level 110 MEQ/L 107 MEQ/L Carbon Dioxide Level 25.0 MEQ/L 26.7 MEQ/L Anion Gap 7 MEQ/L 7 MEQ/L Blood Urea Nitrogen 6 MG/DL 6 MG/DL Creatinine 0.51 MG/DL 0.53 MG/DL Estimat Glomerular Filtration 121 ML/MIN 116 ML/MIN Rate Random Glucose 126 MG/DL 85 MG/DL Calcium Level 8.2 MG/DL 8.4 MG/DL Total Bilirubin 0.4 MG/DL Aspartate Amino Transf 26 U/L (AST/SGOT) Alanine Aminotransferase 14 U/L (ALT/SGPT) Alkaline Phosphatase 57 U/L Total Protein 5.8 GM/DL Albumin 2.7 GM/DL 2.5 GM/DL White Blood Count 8.5 TH/MM3 Red Blood Count 3.70 MIL/MM3 Hemoglobin 11.3 GM/DL Hematocrit 33.5 % Mean Corpuscular Volume 90.7 FL Mean Corpuscular Hemoglobin 30.6 PG Mean Corpuscular Hemoglobin 33.8 % Concent Red Cell Distribution Width 17.0 % Platelet Count 208 TH/MM3 Mean Platelet Volume 8.0 FL Neutrophils (%) (Auto) 66.2 % Lymphocytes (%) (Auto) 14.2 % Monocytes (%) (Auto) 14.5 % Eosinophils (%) (Auto) 4.3 % Basophils (%) (Auto) 0.8 % Neutrophils # (Auto) 5.6 TH/MM3 Lymphocytes # (Auto) 1.2 TH/MM3 Monocytes # (Auto) 1.2 TH/MM3 Eosinophils # (Auto) 0.4 TH/MM3 Basophils # (Auto) 0.1 TH/MM3 CBC Comment DIFF FINAL Differential Comment Phosphorus Level 1.9 MG/DL Magnesium Level 1.9 MG/DL Procedure Category Date Status Time Comprehensive LAB 02/20/17 Complete Metabolic Panel 09:57 Discontinue Central [facility] 02/20/17 In Process Line 13:08 ^ Discontinue [facility] 02/20/17 In Process Following Orders 13:08 Vascular Access Team [facility] 02/20/17 In Process Consult/P 13:41 Vascular Poc IMGUS 02/20/17 Taken Ultrasound (Hub Use Only)Inp Phy CONS 02/20/17 Transmitted Cons/Ref Docusate Sodium-Senna MED 02/20/17 Complete (Stephania-Colace) 16:15 Magnesium Hydroxide MED 02/20/17 Complete Liq (Milk Of Magnesi 16:15 Renal Functional Panel LAB 02/21/17 Complete 06:00 Complete Blood Count LAB 02/21/17 Complete With Diff 06:00 Magnesium (Mg) LAB 02/21/17 Complete 06:00 Consult Pt Eval & PT 02/20/17 Logged Treat 16:16 Case Management CONS 02/20/17 Transmitted Consult ^ Discontinue [facility] 02/21/17 In Process Following Orders 12:20 ^ Discharge Lab Work [facility] 02/22/17 In Process 07:00 Attending Discharge DISCHARGE 02/23/17 Transmitted Order Vital Signs Date Time Temp Pulse Resp B/P Pulse Ox O2 Delivery O2 Flow Rate FiO2 02/23/17 07:01 74 02/23/17 06:00 69 02/23/17 05:00 75 02/23/17 04:00 66 02/23/17 04:00 98.1 76 16 107/71 98 02/23/17 03:00 74 02/23/17 02:00 78 02/23/17 01:00 63 02/23/17 00:00 77 02/22/17 23:10 98.0 78 16 118/71 97 02/22/17 23:00 72 02/22/17 22:00 74 02/22/17 21:00 80 02/22/17 20:00 114 02/22/17 19:50 98.4 88 16 127/77 98 02/22/17 19:00 90 02/22/17 18:01 92 02/22/17 17:00 84 02/22/17 16:01 76 02/22/17 15:01 98.5 89 18 141/97 99 02/22/17 15:00 92 02/22/17 14:00 100 02/22/17 13:01 98 02/22/17 12:03 96 21 02/22/17 12:00 86 02/22/17 11:01 98.7 90 18 84/58 97 02/22/17 11:00 104 02/22/17 10:00 86 02/22/17 09:00 92 02/22/17 08:15 98.5 89 16 138/80 96 02/22/17 03:17 98.0 72 14 142/73 98 02/22/17 03:17 66 02/21/17 23:21 98.0 71 15 151/75 98 02/21/17 23:21 71 02/21/17 19:32 97.8 89 16 160/87 99 02/21/17 19:00 89 02/21/17 15:00 97.4 88 18 150/98 98 02/21/17 15:00 88 02/21/17 13:18 16 02/21/17 11:00 83 02/21/17 11:00 97.8 80 16 171/97 96 02/21/17 07:29 96 21 02/21/17 07:00 97.6 79 15 166/77 96 02/21/17 07:00 79 02/21/17 03:07 67 02/21/17 03:07 98.6 70 15 138/70 93 02/20/17 23:05 74 02/20/17 23:05 98.0 74 15 147/83 93 02/20/17 21:18 97 Nasal Cannula 3.00 02/20/17 19:42 98.3 74 17 127/70 95 02/20/17 19:00 75 02/20/17 15:00 72 02/20/17 15:00 98.0 78 16 139/74 95 02/20/17 11:00 98.2 72 16 148/76 99 02/20/17 11:00 72 02/20/17 09:25 96 Nasal Cannula 2.00 Discharge Condition: Good Discharge Disposition: Discharge Home Discharge Instructions: F/U in 2W at scheduled appointment time Will repeat MAULIK exam in the office Call to report any new onset redness, swelling or drainage Leave incisions to bilat groins open to air Apply Santyl to lower extremity ulcerations daily May shower No BATHS or swimming in a pool or the ocean until incisions are fully healed Dianna CASTANON [facility] [phone] Any questions or concerns: Call [facility] Heart and Vascular Surgery at [facility] [phone] Dianna Pratt Feb 23, 2017 09:13
--- NOTE | 2017-02-23 09:17 | PD.VS.PN ---
Subjective POD #: 5 Procedure(s): ax fem, fem-fem Subjective/Hospital Course Pt in NAD Reports she is ready to go home Pain controlled Objective Vitals/I&O Date Time Temp Pulse Resp B/P Pulse Ox O2 Delivery O2 Flow Rate FiO2 02/23/17 08:30 98.7 90 18 124/84 98 02/23/17 07:01 74 02/23/17 06:00 69 02/23/17 05:00 75 02/23/17 04:00 66 02/23/17 04:00 98.1 76 16 107/71 98 02/23/17 03:00 74 02/23/17 02:00 78 02/23/17 01:00 63 02/23/17 00:00 77 02/22/17 23:10 98.0 78 16 118/71 97 02/22/17 23:00 72 02/22/17 22:00 74 02/22/17 21:00 80 02/22/17 20:00 114 02/22/17 19:50 98.4 88 16 127/77 98 02/22/17 19:00 90 02/22/17 18:01 92 02/22/17 17:00 84 02/22/17 16:01 76 02/22/17 15:01 98.5 89 18 141/97 99 02/22/17 15:00 92 02/22/17 14:00 100 02/22/17 13:01 98 02/22/17 12:03 96 21 02/22/17 12:00 86 02/22/17 11:01 98.7 90 18 84/58 97 02/22/17 11:00 104 02/22/17 10:00 86 02/23/17 02/23/17 02/23/17 06:59 14:59 22:59 Intake Total 240 ml Balance 240 ml Exam: GENERAL: A&OX3, NAD, GCS15 SKIN: Warm and dry/ Bilat groin incisions intact w/o R/D/S No Hematoma/ L medial ulceration 3cm X 3.75 with mild serosanguanious drainage/ R above the ankle 1.5X1.5 cm w/o Redness at the borders no D/S/R/ R chest incision intact with surgical glue no R/D/S MUSCULOSKELETAL: No cyanosis/ Swelling improved to LLE/ BLE warm w/ motor intact Strong Bilat DP/PT heard via Doppler Assessment and Plan Assessment: (1) Aortoiliac occlusive disease Status: Acute Plan Pt improved with strong Doppler signals to LE LE warm with motor intact Pain controlled Plan Pt to be d/c today Pain RX written Continue daily ASA regimen f/u 2W with an MAULIK Dianna CASTANON [facility] [phone] Discharge Planning Today Dianna Pratt Feb 23, 2017 09:17
== END 2017-02-23 10:45 | disposition home or self-care (01) | DRG 253 ==
LOC: HSDI 02-18 06:53 → HCVR 02-18 14:31 → HCIN 02-22 07:29
PROVIDERS: ADMIT Surgery; ATTEND Surgery
PROC: 03150J9 Bypass Right Axillary Artery to Right Lower Leg Artery with Synthetic Substitute, Open Approach (ICD-10-PCS; 2017-02-18)
PROC: 041K0JJ Bypass Right Femoral Artery to Left Femoral Artery with Synthetic Substitute, Open Approach (ICD-10-PCS; principal; 2017-02-18 09:52)
PROC: 30233N1 Transfusion of Nonautologous Red Blood Cells into Peripheral Vein, Percutaneous Approach (ICD-10-PCS; 2017-02-19)
DX: I70.203 Unspecified atherosclerosis of native arteries of extremities, bilateral legs (principal); I74.09 Other arterial embolism and thrombosis of abdominal aorta; G89.18 Other acute postprocedural pain; K59.00 Constipation, unspecified; E87.6 Hypokalemia; E83.39 Other disorders of phosphorus metabolism; D64.9 Anemia, unspecified
CPT/HCPCS: 36430; 71010; 76937; 80048; 80053; 80069; 82948; 83735; 84100; 84155; 85014; 85018; 85025; 85610; 86920; 94150; 94640; 94664; C1768; J0131; J0690; J1100; J1644; J2250; J2270; J2370; J2405; J2720; J3010; J3370; J7030; J7050; J7120; P9016

== ENCOUNTER → 2017-02-17 | Outpatient (CLI) | payer MEDICARE ==
[~2017-02-17] MED LIST changes: +ASPI325T33 PO; +COLL30T TOPICAL; +LEVO250T7 PO; +OXYC1TAB36 PO
[2017-02-17 13:18] LABS: AUTOMATED NEUTROPHIL # 6.3 TH/MM3 (1.8-7.7); BASOPHIL # 0.1 TH/MM3 (0-0.2); BASOPHIL % 0.6 % (0.0-2.0); EOSINOPHIL # 0.1 TH/MM3 (0-0.4); HEMATOCRIT 38.4 % (35.0-46.0); HEMO FLAGS DIFF FINAL; LYMPH % 13.1 % (9.0-44.0); LYMPHOCYTE # 1.1 TH/MM3 (1.0-4.8); MEAN CELL VOLUME 97.2 FL (80.0-100.0); MEAN CORPUSCULAR HEMOGLOBIN 31.8 PG (27.0-34.0); MEAN CORPUSCULAR HGB CONC 32.7 % (32.0-36.0); MONO % 8.5 % (0.0-8.0); NEUT % 76.8 % (16.0-70.0); PLATELET COUNT 386 TH/MM3 (150-450); RED BLOOD COUNT 3.95 MIL/MM3 (4.00-5.30); RED CELL DISTRIBUTION WIDTH 13.7 % (11.6-17.2); WHITE BLOOD COUNT 8.3 TH/MM3 (4.0-11.0)
[2017-02-17 13:23] LABS: BLOOD, URINE NEG (NEG); COMMENT (UR) CULT NOT INDICATED; CULTURE IF INDICATED CULT NOT INDICATED; GLUCOSE,URINE NEG (NEG); KETONE, URINE NEG (NEG); MUCUS URINE FEW /lpf (OCC); NITRITE,URINE NEG (NEG); URINE COLOR LIGHT-YELLOW (YELLW/STRAW)
[2017-02-17 14:00] LABS: BICARBONATE 24.9 MEQ/L (21.0-32.0)
--- NOTE | 2017-02-17 15:30 | RADRPT ---
EXAM DATE/TIME: 02/17/2017 12:37 [facility] COMPARISON: No previous studies available for comparison. INDICATIONS : Evaluate for penumonia, pneumothorax or communicable disease. Pre op for bilateral femoral bypass. MEDICAL HISTORY : Hypertension. SURGICAL HISTORY : None. ENCOUNTER: Initial ACUITY: 1 day PAIN SCORE: 0/10 LOCATION: chest FINDINGS: PA and lateral views of the chest demonstrate the lungs to be symmetrically aerated without evidence of mass, infiltrate or effusion. The cardiomediastinal contours are unremarkable. Osseous structure s are intact. CONCLUSION: No acute disease. Alex Hernández MD FACR on February 17, 2017 at 15:28 Board Certified Radiologist. This report was verified electronically.
--- NOTE | 2017-02-18 13:03 | EKG ---
Date Performed: 02/17/2017 Time Performed: 12:05:26 PTAGE: 66 years EKG: Sinus rhythm SEPTAL MYOCARDIAL INFARCTION, OF INDETERMINATE AGE ABNORMAL ECG NO PREVIOUS TRACING DOCTOR: Neftaly Tenorio Interpretating Date/Time 02/18/2017 12:56:22
== END ==
LOC: CPRE 11:39
PROVIDERS: ATTEND Surgery
DX: Z01.812 Encounter for preprocedural laboratory examination (principal); Z01.811 Encounter for preprocedural respiratory examination; Z01.810 Encounter for preprocedural cardiovascular examination; I73.9 Peripheral vascular disease, unspecified; R94.31 Abnormal electrocardiogram [ECG] [EKG]
CPT/HCPCS: 36415; 71020; 80048; 81001; 85025; 86850; 86900; 86901; 86920; 93005